=== PATIENT | female | born 1960 | race Caucasian/White ===

== ENCOUNTER 2017-05-23 19:30 | Emergency (ER) | payer OTHER ==
[2017-05-23 20:12] VITALS: BP 156/68
--- NOTE | 2017-05-23 20:54 | UC ---
Skin Complaint HPI - HPI Summary HPI Summary: Patient presents to the with CC of pruritis to the right abdomen and posterior nape of the neck. Denies fevers, sweats, or chills. She is currently taking care of her mother, is under a fair amount of stress and states she has been taking medications. She has anxiety over her mother and states the hives may be d/t that. Her mother currently has shingles and she is concerned she may have it. Denies soap changes, but notes to medication changes. Denies insect bites. Denies fevers, sweats, chills or other signs of a systemic illness. - History of Current Complaint Chief Complaint: UCSkin Time Seen by Provider: 05/23/17 20:27 Stated Complaint: SKIN COMPLAINT Hx Obtained From: Patient ?: No Onset/Duration: Sudden Onset Skin Exposure Onset/Duration: Hours Ago Timing: Constant Onset Severity: Mild Current Severity: Mild Pain Intensity: 0 Pain Scale Used: 0-10 Numeric Location: Other - right abdomen and nape of the posterior neck Aggravating Factor(s): Nothing Alleviating Factor(s): Nothing Associated Signs & Symptoms: Positive: Negative Related History: Recent change in medication - Allergy/Home Medications Allergies/Adverse Reactions: Allergies Allergy/AdvReac Type Severity Reaction Status Date / Time Cefaclor [From Ceclor] Allergy Hives Verified 05/23/17 20:01 Clarithromycin [From Biaxin] Allergy Hives Verified 05/23/17 20:01 Tetracycline Allergy Hives Verified 05/23/17 20:01 cillins Allergy Hives Uncoded 05/23/17 20:01 Home Medications: Home Medications Clindamycin HCl [Clindamycin 150 MG CAP*] 300 mg PO Q8H 05/23/17 [History Confirmed 05/23/17] Ibuprofen TAB* [Advil TAB*] 400 mg PO Q6H PRN 05/23/17 [History Confirmed ] Levothyroxine TAB* [Synthroid TAB*] 25 mcg PO DAILY 05/23/17 [History Confirmed 05/23/17] Review of Systems Constitutional: Negative Skin: Rash Eyes: Negative Respiratory: Negative Cardiovascular: Negative Motor: Negative Neurovascular: Negative Musculoskeletal: Negative Neurological: Headache Is Patient Immunocompromised?: No All Other Systems Reviewed And Are Negative: Yes PMH/Surg Hx/FS Hx/Imm Hx Previously Healthy: Yes - Surgical History Surgical History: Yes Surgery Procedure, Year, and Place: hysterectomy- 2003 - Family History Known Family History: Positive: Unknown - Social History Occupation: Employed Part-time Lives: With Family Alcohol Use: Occasionally Substance Use Type: None Smoking Status (MU): Never Smoked Tobacco - Immunization History Most Recent Influenza Vaccination: not this season Physical Exam Triage Information Reviewed: Yes Appearance: Well-Appearing, Well-Nourished Vital Signs: Initial Vital Signs Temp 99.8 F 05/23/17 20:05 Pulse 61 05/23/17 20:05 Resp 18 05/23/17 20:05 BP 156/68 05/23/17 20:05 Pulse Ox 100 05/23/17 20:05 Vital Signs Reviewed: Yes Eye Exam: Normal Eyes: Positive: Conjunctiva Clear Neck exam: Normal Neck: Positive: Supple, No Lymphadenopathy Respiratory Exam: Normal Respiratory: Positive: Chest non-tender, Lungs clear, Normal breath sounds Cardiovascular Exam: Normal Cardiovascular: Positive: RRR, No Murmur Musculoskeletal Exam: Normal Musculoskeletal: Positive: ROM Intact Neurological Exam: Normal Psychological: Positive: Normal Response To Family Skin: Positive: rashes Course/Dx - Course Course Of Treatment: right abdomen and nape of the posterior neck. the area is slightly erythematous with pruritis. No vesicles, papules or pustules noted. change in medication, however there is little evidence of a morbilloform/ exanthem drug eruption. she is given hydroxyzine for itching and triamcnialone for itching and pruritis. - Differential Diagnoses - Skin Complaint Differential Diagnoses: Other - pruritis, itching, rash - Diagnoses Provider Diagnoses: Pruritic Rash Discharge - Discharge Plan Condition: Stable Disposition: HOME Prescriptions: Triamcinolone 0.5% CREAM(NF) [Triamcinolone 0.5% CREAM*] 1 applic TOPICAL TID # 1 tube hydrOXYzine HCL TAB* [Atarax 25 MG TAB*] 25 mg PO TID PRN #15 tab PRN Reason: Itching Patient Education Materials: Urticaria (ED) Referrals: Hebert Mancilla MD [Primary Care Provider] - Additional Instructions: Please follow up with PCP or return if symptoms worsen Hydroxyzine up to three times daily for itching Triamcinalone cream for itching - apply twice daily
== END 2017-05-23 20:44 | disposition home or self-care (01) ==
LOC: UCCORT 19:30
DX: Z88.0 Allergy status to penicillin (principal); Z88.8 Allergy status to other drugs, medicaments and biological substances; Z88.1 Allergy status to other antibiotic agents
CPT/HCPCS: 99202; G0463

== ENCOUNTER 2019-01-04 14:03 | Emergency (ER) | payer OTHER ==
[2019-01-04 14:33] VITALS: BP 117/68
--- NOTE | 2019-01-04 14:38 | UC ---
Hand/Wrist HPI - HPI Summary HPI Summary: 58 year old female presents with left wrist pain after accidentally [facility] and falling to the floor onto an outstretched arm. Complains of medial left wrist pain especially with any type of movement. States she also hit her left elbow but reports mild abrasion and no other injury. Complains of some mild numbness and tingling in her fingers. Denies hitting head, loss of consciousness, chest pain, palpitations, dizziness, lightheadedness, or any other injury. Reports previous fracture of the wrist and carpal tunnel release one year ago. - History Of Current Complaint Chief Complaint: UCUpperExtremity Stated Complaint: LEFT WRIST INJURY Time Seen by Provider: 01/04/19 14:31 Hx Obtained From: Patient Pain Intensity: 5 - Allergies/Home Medications Allergies/Adverse Reactions: Allergies Allergy/AdvReac Type Severity Reaction Status Date / Time cefaclor [From Ceclor] Allergy Hives Verified 01/04/19 14:30 clarithromycin [From Biaxin] Allergy Hives Verified 01/04/19 14:30 gluten Allergy Swelling Verified 01/04/19 14:30 Of Face,Lips,& Throat Penicillins Allergy Hives Verified 01/04/19 14:30 Tetracyclines Allergy Hives Verified 01/04/19 14:30 dairy products Allergy Swelling Uncoded 01/04/19 14:30 Of Face,Lips,& Throat Home Medications: Home Medications Naltrexone Cream 1 applic TOPICAL DAILY 01/04/19 [History Confirmed 01/04/19] Thyroid,Pork [Marks Thyroid] 5 tab PO DAILY 01/04/19 [History Confirmed ] PMH/Surg Hx/FS Hx/Imm Hx Endocrine History: Hypothyroidism - Surgical History Surgical History: Yes Surgery Procedure, Year, and Place: hysterectomy- 2002. carpal tunnel L hand. one ovary - Family History Known Family History: Positive: Non-Contributory - Social History Occupation: Employed Full-time Lives: With Family Alcohol Use: Occasionally Substance Use Type: None Smoking Status (MU): Never Smoked Tobacco - Immunization History Most Recent Influenza Vaccination: not this season Review of Systems All Other Systems Reviewed And Are Negative: Yes Constitutional: Positive: Negative Skin: Positive: Other - abrasion Eyes: Positive: Negative Respiratory: Positive: Negative Cardiovascular: Positive: Negative Gastrointestinal: Positive: Negative Genitourinary: Positive: Negative Motor: Negative: Weakness Musculoskeletal: Positive: Other: - See HPI Neurological: Positive: Paresthesia Is Patient Immunocompromised?: No Physical Exam - Summary Physical Exam Summary: GENERAL APPEARANCE: Well developed, well nourished, alert and cooperative, and appears to be in no acute distress. CARDIAC: Normal S1 and S2. No S3, S4 or murmurs. Rhythm is regular. There is no peripheral edema, cyanosis or pallor. Extremities are warm and well perfused. Capillary refill is less than 2 seconds. Peripheral pulses intact. LUNGS: Clear to auscultation without rales, rhonchi, wheezing or diminished breath sounds. ABDOMEN: Positive bowel sounds. Soft, nondistended, nontender. No guarding or rebound. No masses or hepatosplenomegally. MUSKULOSKELETAL: Normal muscular development. Normal gait. EXTREMITIES: Mild tenderness to her anterior medial left wrist without erythema , ecchymosis, or gross deformity. Decreased flexion and extension due to pain. Full range of motion to all fingers. Sensation and circulation were intact. Small superficial abrasions noted to her posterior left elbow. No tenderness. Full painless range of motion. SKIN: Skin normal color, texture and turgor with no lesions or eruptions. Triage Information Reviewed: Yes Vital Signs: Initial Vital Signs Temp 98.9 F 01/04/19 14:30 Pulse 87 01/04/19 14:30 Resp 15 01/04/19 14:30 BP 117/68 01/04/19 14:30 Pulse Ox 97 01/04/19 14:30 Vital Signs Reviewed: Yes Diagnostics - Radiology No standard instances Radiology Interpretation Completed By: ED Physician - No acute fracture, Radiologist Summary of Radiographic Findings: Order Information: WRIST LEFT 3+ VWS. Accession Number: [id number]. CPT: 74529. Indication: Fall with left wrist injury. 3 views of the wrist demonstrates no fracture. No other bone or joint abnormality is identified. IMPRESSION: NO FRACTURE OF THE WRIST IS NOTED. Hand/Wrist Course/Dx - Course Course Of Treatment: 58 year old female presents with left wrist pain after accidentally [facility] and falling to the floor onto an outstretched arm. Complains of medial left wrist pain especially with any type of movement. States she also hit her left elbow but reports mild abrasion and no other injury. Complains of some mild numbness and tingling in her fingers. Denies hitting head, loss of consciousness, chest pain, palpitations, dizziness, lightheadedness, or any other injury. Reports previous fracture of the wrist and carpal tunnel release one year ago. Afebrile. Vital signs stable. Exam reveals mild tenderness to her anterior medial left wrist without erythema, ecchymosis, or gross deformity. Decreased flexion and extension due to pain. Full range of motion to all fingers. Sensation and circulation were intact. Small superficial abrasions noted to her posterior left elbow. No tenderness. Full painless range of motion. Exam was otherwise unremarkable. X-ray of the left wrist showed no acute fracture or dislocation. Patient was placed in a cockup wrist splint by the RN. Pre-and post-application circulation and sensation were normal. Recommending conservative treatment with immobilization and RICE. She is to follow-up with orthopedic surgery in 5-7 days if symptoms do not improve. Anticipatory guidance and warning symptoms are reviewed with the patient. Verbalizes understanding and agrees with plan of care. - Differential Dx/Diagnosis Differential Diagnosis/HQI/PQRI: Contusion, Dislocation, Fracture, Sprain Provider Diagnosis: Left wrist sprain Discharge - Sign-Out/Discharge Documenting (check all that apply): Patient Departure All imaging exams completed and their final reports reviewed: Yes - Discharge Plan Condition: Stable Disposition: HOME Patient Education Materials: Wrist Sprain (ED) Referrals: Chris Fernandez MD [Medical Doctor] - 5 Days Emma Green MD [Primary Care Provider] - Additional Instructions: The x-ray performed in the clinic today showed no evidence of a fracture. Rest the arm as much as possible. Wear the cockup wrist splint that was applied in the clinic for support until you are pain free. You may remove to shower but should wear at all other times. Apply ice to the affected area for 15-20 minutes at least 4 times a day to help with the pain and swelling. Elevate the arm to help reduce swelling. Take acetaminophen (Tylenol) or ibuprofen (Advil, Motrin) according to directions as needed for pain. Follow up with orthopedic surgery in 5-7 days if symptoms do not improve. Seek immediate medical attention if you have severe pain not managed with pain medication, you lose function of the hand or arm, or have any worsening of symptoms. - Billing Disposition and Condition Condition: STABLE Disposition: Home
== END 2019-01-04 15:29 | disposition home or self-care (01) ==
LOC: UCCORT 14:03
DX: S63.502A Unspecified sprain of left wrist, initial encounter (principal); S50.312A Abrasion of left elbow, initial encounter; E03.9 Hypothyroidism, unspecified; Z88.1 Allergy status to other antibiotic agents; Z91.018 Allergy to other foods; Z91.011 Allergy to milk products; Z79.890 Hormone replacement therapy; W01.0XXA Fall on same level from slipping, tripping and stumbling without subsequent striking against object, initial encounter; Y92.099 Unspecified place in other non-institutional residence as the place of occurrence of the external cause
CPT/HCPCS: 99212; G0463